=== PATIENT | male | born 1970 | race Caucasian/White ===

== ENCOUNTER 2021-03-28 17:18 | Inpatient (IN) | payer MEDICAID, OTHER ==
[~2021-03-28] VITALS: Ht 188 cm; Wt 76.8 kg
--- NOTE | 2021-03-28 17:32 | NUR ---
EKG IN TRIAGE.
--- NOTE | 2021-03-28 17:43 | NUR ---
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
--- NOTE | 2021-03-28 17:47 | NUR ---
CONTACT WITH PT, 50 YR OLD MALE HERE WITH C/O " I'M DYING, I HAVE COVID, SEVERE CHILLS, EXTREME FATIGUE, LITTLE BIT OF NAUSEA" BEGAN LAST TUES. HAS NOT BEEN TESTED AND HAS NOT HAD THE VACCINE.
--- NOTE | 2021-03-28 18:55 | NUR ---
REPORT TO GENARO NICOLE.
[2021-03-28 19:22] LABS: RAPID INFLUENZA A Negative (Negative); RAPID INFLUENZA B Negative (Negative)
[2021-03-28] MEDS ORDERED: SODIUM CHLORIDE FLUSH 10ML SYR IVF ONE (19:30)
[2021-03-28] MEDS ORDERED: DEXAMETHASONE 4 MG/ML, 1ML IVPush ONE (19:30)
[2021-03-28] MEDS ORDERED: DEXAMETHASONE 4 MG/ML, 1ML ONE (19:40)
[2021-03-28 20:12] LABS: BASOPHILS % (AUTO) 0 % (0-1); EOSINOPHILS % (AUTO) 0 % (1-7); LYMPHOCYTES % (AUTO) 11 % (22-44); MEAN CORPUSCULAR HEMOGLOBIN 30.4 pg (27.5-34.5); MEAN CORPUSCULAR HGB CONC 33.9 g/dL (33.2-36.2); MEAN PLATELET VOLUME 7.7 fL (7.4-10.4); MONOCYTES % (AUTO) 5 % (2-9); NEUTROPHILS % (AUTO) 84 % (42-75); PLATELET COUNT 186 x10^3/uL (130-400); RED BLOOD COUNT 4.96 x10^6/uL (4.38-5.82); RED CELL DISTRIBUTION WIDTH 13.7 % (9.4-14.8)
[2021-03-28 20:13] LABS: MD NO
[2021-03-28 20:22] LABS: ALBUMIN 3.2 g/dL (3.4-5.0); ANION GAP 6 mmol/L (5-15); CALCIUM 8.5 mg/dL (8.5-10.1); CHLORIDE 100 mmol/L (98-107); CREATININE 0.97 mg/dL (0.7-1.3)
[2021-03-28] MEDS ORDERED: SODIUM CHLORIDE FLUSH 10ML SYR IVF PRN (20:30)
[2021-03-28 22:08] VITALS: BP 131/89
[2021-03-28] MEDS ORDERED: LIDODERM 5% PATCH TD PRN (23:00)
[2021-03-28] MEDS ORDERED: NS + 20MEQ KCL 1,000 ML IV SCH (23:00)
[2021-03-28] MEDS ORDERED: ACETAMINOPHEN 325 MG TABLET PO PRN (23:00)
[2021-03-28] MEDS ORDERED: PHARMACY MAY ADJ FOR RENAL FX MC PRN (23:00)
[2021-03-28] MEDS ORDERED: DOCUSATE 100 MG CAPSULE PO PRN (23:00)
[2021-03-29] MEDS: MELATONIN 5 MG TABLET PO SCH ×2 (00:51→21:39)
[2021-03-29 02:00] VITALS: BP 120/81
[2021-03-29 05:30] LABS: BASOPHILS % (AUTO) 0 % (0-1); EOSINOPHILS % (AUTO) 0 % (1-7); LYMPHOCYTES % (AUTO) 10 % (22-44); MEAN CORPUSCULAR HEMOGLOBIN 30.7 pg (27.5-34.5); MEAN CORPUSCULAR HGB CONC 34.1 g/dL (33.2-36.2); MEAN PLATELET VOLUME 7.6 fL (7.4-10.4); MONOCYTES % (AUTO) 3 % (2-9); NEUTROPHILS % (AUTO) 87 % (42-75); PLATELET COUNT 208 x10^3/uL (130-400); RED BLOOD COUNT 5.18 x10^6/uL (4.38-5.82); RED CELL DISTRIBUTION WIDTH 14.1 % (9.4-14.8)
[2021-03-29 05:32] LABS: HCT (SEDRATE) 45.9 % (39.2-51.8)
[2021-03-29 05:35] LABS: MD NO
[2021-03-29 05:41] LABS: ALBUMIN 3.3 g/dL (3.4-5.0); ANION GAP 6 mmol/L (5-15); CALCIUM 9.1 mg/dL (8.5-10.1); CHLORIDE 101 mmol/L (98-107)
[2021-03-29 05:45] LABS: D-DIMER 0.96 ug/mlFEU (0.00-0.52); INTERNATIONAL NORMALIZED RATIO 0.97 (0.93-1.1); PROTHROMBIN TIME 10.4 Seconds (9.6-11.5)
[2021-03-29 06:00] LABS: ALANINE AMINOTRANSFERASE 227 U/L (12-78); ALKALINE PHOSPHATASE 186 U/L (45-117); BILIRUBIN,TOTAL 0.4 mg/dL (0.2-1.0); CREATINE KINASE, TOTAL 329 U/L (39-308); CREATININE 0.95 mg/dL (0.7-1.3); TOTAL PROTEIN 7.9 g/dL (6.4-8.2)
[2021-03-29] MEDS: DOXYCYCLINE 100 MG in DEXTROSE 5% 250 ML IV SCH ×2 (06:15→18:44)
[2021-03-29 07:59] VITALS: BP 126/83
[2021-03-29] MEDS: ASCORBIC ACID 500 MG TABLET PO SCH ×2 (08:16→21:39)
[2021-03-29] MEDS: ZINC SULFATE 220 MG CAPSULE PO SCH (08:44)
[2021-03-29 08:52] LABS: % IRON SATURATION 17 % (20-55); IRON LEVEL 35 mcg/dL (65-175); TOTAL IRON BINDING CAPACITY 211 mcg/dL (250-450); TRANSFERRIN 169 mg/dL (200-360)
[2021-03-29] MEDS ORDERED: DEXAMETHASONE 4 MG/ML, 1ML IVPush SCH (09:00)
[2021-03-29 12:40] VITALS: BP 132/93
[2021-03-29] MEDS ORDERED: REMDESIVIR 200 MG in SODIUM CHLORIDE 0.9% 250 ML IVPB ONE (13:00)
[2021-03-29] MEDS: ENOXAPARIN 40 MG/0.4 ML SQ SCH (16:44)
[2021-03-29] MEDS: DEXAMETHASONE 4 MG TABLET PO SCH (16:53)
[2021-03-29 20:54] VITALS: BP 130/89
[2021-03-30 02:46] VITALS: BP 115/80
[2021-03-30 05:49] LABS: BASOPHILS % (AUTO) 0 % (0-1); EOSINOPHILS % (AUTO) 0 % (1-7); LYMPHOCYTES % (AUTO) 7 % (22-44); MEAN CORPUSCULAR HEMOGLOBIN 30.4 pg (27.5-34.5); MEAN CORPUSCULAR HGB CONC 33.7 g/dL (33.2-36.2); MEAN PLATELET VOLUME 7.1 fL (7.4-10.4); MONOCYTES % (AUTO) 9 % (2-9); NEUTROPHILS % (AUTO) 85 % (42-75); PLATELET COUNT 257 x10^3/uL (130-400); RED BLOOD COUNT 4.87 x10^6/uL (4.38-5.82); RED CELL DISTRIBUTION WIDTH 13.9 % (9.4-14.8)
[2021-03-30 05:50] LABS: MD NO
[2021-03-30 05:51] LABS: HCT (SEDRATE) 42.9 % (39.2-51.8)
[2021-03-30 06:02] LABS: ANION GAP 6 mmol/L (5-15); CALCIUM 8.6 mg/dL (8.5-10.1); CHLORIDE 107 mmol/L (98-107)
[2021-03-30] MEDS: DOXYCYCLINE 100 MG in DEXTROSE 5% 250 ML IV SCH ×2 (06:04→18:07)
[2021-03-30 06:06] LABS: ALBUMIN 2.9 g/dL (3.4-5.0); BILIRUBIN, DIRECT 0.2 mg/dL (0.1-0.2); BILIRUBIN,INDIRECT 0.2 mg/dL (0.0-2.0); BILIRUBIN,TOTAL 0.4 mg/dL (0.2-1.0); TOTAL PROTEIN 6.7 g/dL (6.4-8.2)
[2021-03-30 06:24] LABS: ALANINE AMINOTRANSFERASE 216 U/L (12-78); ALKALINE PHOSPHATASE 155 U/L (45-117); BILIRUBIN,TOTAL 0.4 mg/dL (0.2-1.0); CREATINE KINASE, TOTAL 199 U/L (39-308)
[2021-03-30 07:42] VITALS: BP 136/92
[2021-03-30] MEDS: ASCORBIC ACID 500 MG TABLET PO SCH ×2 (07:50→20:36)
[2021-03-30] MEDS: ZINC SULFATE 220 MG CAPSULE PO SCH (07:50)
[2021-03-30] MEDS: DEXAMETHASONE 4 MG TABLET PO SCH ×2 (07:50→16:36)
[2021-03-30] MEDS ORDERED: GUAIFENESIN/DM 200-20MG, 10ML UDC PO PRN (09:00)
[2021-03-30] MEDS: BENZONATATE 100 MG CAPSULE PO SCH ×3 (09:19→20:36)
[2021-03-30] MEDS: REMDESIVIR 100 MG in SODIUM CHLORIDE 0.9% 250 ML IVPB SCH (13:06)
[2021-03-30] MEDS: ACETAMINOPHEN 325 MG TABLET PO PRN ×2 (13:14→20:45)
[2021-03-30 13:19] VITALS: BP 127/87
[2021-03-30] MEDS: ENOXAPARIN 40 MG/0.4 ML SQ SCH (16:37)
[2021-03-30 20:00] VITALS: BP 122/80
[2021-03-30] MEDS: MELATONIN 5 MG TABLET PO SCH (20:36)
[2021-03-31 01:11] VITALS: BP 130/91
[2021-03-31] MEDS: DOXYCYCLINE 100 MG in DEXTROSE 5% 250 ML IV SCH ×2 (05:59→17:47)
[2021-03-31 06:04] LABS: BASOPHILS % (AUTO) 0 % (0-1); EOSINOPHILS % (AUTO) 0 % (1-7); LYMPHOCYTES % (AUTO) 8 % (22-44); MEAN CORPUSCULAR HEMOGLOBIN 30.9 pg (27.5-34.5); MEAN CORPUSCULAR HGB CONC 34.5 g/dL (33.2-36.2); MEAN PLATELET VOLUME 6.9 fL (7.4-10.4); MONOCYTES % (AUTO) 8 % (2-9); NEUTROPHILS % (AUTO) 84 % (42-75); PLATELET COUNT 280 x10^3/uL (130-400); RED CELL DISTRIBUTION WIDTH 14.2 % (9.4-14.8)
[2021-03-31 06:04] LABS: HCT (SEDRATE) 40.7 % (39.2-51.8)
[2021-03-31 06:05] VITALS: BP 124/83
[2021-03-31 06:09] LABS: D-DIMER 0.64 ug/mlFEU (0.00-0.52); INTERNATIONAL NORMALIZED RATIO 0.98 (0.93-1.1); PROTHROMBIN TIME 10.5 Seconds (9.6-11.5)
[2021-03-31 06:14] LABS: MD NO
[2021-03-31 06:49] LABS: CREATINE KINASE, TOTAL 142 U/L (39-308)
[2021-03-31 06:58] LABS: ANION GAP 6 mmol/L (5-15); CALCIUM 8.6 mg/dL (8.5-10.1); CHLORIDE 109 mmol/L (98-107)
[2021-03-31 06:59] LABS: ALANINE AMINOTRANSFERASE 408 U/L (12-78); ALBUMIN 2.7 g/dL (3.4-5.0); ALKALINE PHOSPHATASE 151 U/L (45-117); BILIRUBIN,TOTAL 0.6 mg/dL (0.2-1.0); CREATININE 0.84 mg/dL (0.7-1.3); TOTAL PROTEIN 6.2 g/dL (6.4-8.2)
[2021-03-31 07:37] LABS: BILIRUBIN, DIRECT 0.2 mg/dL (0.1-0.2)
[2021-03-31] MEDS: ACETAMINOPHEN 325 MG TABLET PO PRN (08:27)
[2021-03-31] MEDS: BENZONATATE 100 MG CAPSULE PO SCH ×3 (08:27→20:54)
[2021-03-31] MEDS: ASCORBIC ACID 500 MG TABLET PO SCH ×2 (08:27→20:55)
[2021-03-31] MEDS: DEXAMETHASONE 4 MG TABLET PO SCH ×2 (08:27→17:46)
[2021-03-31] MEDS: ZINC SULFATE 220 MG CAPSULE PO SCH (08:27)
[2021-03-31 12:07] VITALS: BP 126/86
[2021-03-31] MEDS: REMDESIVIR 100 MG in SODIUM CHLORIDE 0.9% 250 ML IVPB SCH (13:31)
[2021-03-31] MEDS: ENOXAPARIN 40 MG/0.4 ML SQ SCH (17:45)
[2021-03-31 20:25] VITALS: BP 135/89
[2021-03-31] MEDS: MELATONIN 5 MG TABLET PO SCH (20:54)
[2021-04-01 02:02] VITALS: BP 129/85
[2021-04-01] MEDS: DOXYCYCLINE 100 MG in DEXTROSE 5% 250 ML IV SCH ×2 (06:02→17:25)
[2021-04-01 06:14] LABS: BASOPHILS % (AUTO) 0 % (0-1); EOSINOPHILS % (AUTO) 0 % (1-7); LYMPHOCYTES % (AUTO) 6 % (22-44); MEAN CORPUSCULAR HEMOGLOBIN 30.6 pg (27.5-34.5); MEAN CORPUSCULAR HGB CONC 33.5 g/dL (33.2-36.2); MONOCYTES % (AUTO) 10 % (2-9); NEUTROPHILS % (AUTO) 84 % (42-75); PLATELET COUNT 295 x10^3/uL (130-400); RED BLOOD COUNT 4.46 x10^6/uL (4.38-5.82); RED CELL DISTRIBUTION WIDTH 14.1 % (9.4-14.8)
[2021-04-01 06:15] LABS: MD NO
[2021-04-01 06:30] LABS: CHLORIDE 106 mmol/L (98-107)
[2021-04-01] MEDS ORDERED: AZITHROMYCIN 500 MG in SODIUM CHLORIDE 0.9% 250 ML IV SCH (06:30)
[2021-04-01 06:53] LABS: ALANINE AMINOTRANSFERASE 415 U/L (12-78); ALBUMIN 2.7 g/dL (3.4-5.0); ALKALINE PHOSPHATASE 134 U/L (45-117); ANION GAP 7 mmol/L (5-15); BILIRUBIN,TOTAL 0.4 mg/dL (0.2-1.0); C-REACTIVE PROTEIN, QUANT 0.61 mg/dL (0.02-0.49); CALCIUM 8.3 mg/dL (8.5-10.1); CREATINE KINASE, TOTAL 88 U/L (39-308); CREATININE 0.81 mg/dL (0.7-1.3); TOTAL PROTEIN 6.1 g/dL (6.4-8.2)
[2021-04-01 07:49] LABS: ALBUMIN 2.7 g/dL (3.4-5.0); BILIRUBIN, DIRECT 0.1 mg/dL (0.1-0.2)
[2021-04-01 07:50] LABS: BILIRUBIN,INDIRECT 0.3 mg/dL (0.0-2.0); BILIRUBIN,TOTAL 0.4 mg/dL (0.2-1.0); TOTAL PROTEIN 6.3 g/dL (6.4-8.2)
[2021-04-01 07:51] LABS: HCT (SEDRATE) 40.7 % (39.2-51.8)
[2021-04-01] MEDS: ACETAMINOPHEN 325 MG TABLET PO PRN (08:03)
[2021-04-01] MEDS: ZINC SULFATE 220 MG CAPSULE PO SCH (08:03)
[2021-04-01] MEDS: BENZONATATE 100 MG CAPSULE PO SCH ×3 (08:03→22:00)
[2021-04-01] MEDS: DEXAMETHASONE 4 MG TABLET PO SCH ×2 (08:04→17:23)
[2021-04-01] MEDS: ASCORBIC ACID 500 MG TABLET PO SCH ×2 (08:04→22:01)
[2021-04-01 08:06] VITALS: BP 126/89
[2021-04-01] MEDS ORDERED: OXYcodone/APAP 5/325MG TABLET PO PRN (09:30)
[2021-04-01] MEDS ORDERED: morphine SULFATE 10 MG/ML, 1ML IVPush PRN (09:30)
[2021-04-01] MEDS: REMDESIVIR 100 MG in SODIUM CHLORIDE 0.9% 250 ML IVPB SCH (13:01)
[2021-04-01 14:00] VITALS: BP 121/80
[2021-04-01] MEDS: ENOXAPARIN 40 MG/0.4 ML SQ SCH (17:24)
[2021-04-01 19:37] VITALS: BP 129/71
[2021-04-01] MEDS: MELATONIN 5 MG TABLET PO SCH (21:59)
[2021-04-02 01:41] VITALS: BP 126/87
[2021-04-02] MEDS: DOXYCYCLINE 100 MG in DEXTROSE 5% 250 ML IV SCH ×2 (05:23→17:29)
[2021-04-02 05:26] LABS: HCT (SEDRATE) 40.3 % (39.2-51.8)
[2021-04-02 05:34] LABS: BASOPHILS % (AUTO) 0 % (0-1); EOSINOPHILS % (AUTO) 0 % (1-7); LYMPHOCYTES % (AUTO) 7 % (22-44); MEAN CORPUSCULAR HEMOGLOBIN 30.8 pg (27.5-34.5); MEAN CORPUSCULAR HGB CONC 34.4 g/dL (33.2-36.2); MEAN PLATELET VOLUME 7.1 fL (7.4-10.4); MONOCYTES % (AUTO) 13 % (2-9); NEUTROPHILS % (AUTO) 80 % (42-75); PLATELET COUNT 293 x10^3/uL (130-400); RED BLOOD COUNT 4.49 x10^6/uL (4.38-5.82); RED CELL DISTRIBUTION WIDTH 13.9 % (9.4-14.8)
[2021-04-02 05:38] LABS: D-DIMER 0.94 ug/mlFEU (0.00-0.52); INTERNATIONAL NORMALIZED RATIO 1.06 (0.93-1.1); PROTHROMBIN TIME 11.3 Seconds (9.6-11.5)
[2021-04-02 05:40] LABS: ALBUMIN 2.6 g/dL (3.4-5.0); ANION GAP 9 mmol/L (5-15); CALCIUM 8.2 mg/dL (8.5-10.1); CHLORIDE 108 mmol/L (98-107)
[2021-04-02 05:42] LABS: MD NO
[2021-04-02 05:45] LABS: ALANINE AMINOTRANSFERASE 414 U/L (12-78); ALKALINE PHOSPHATASE 119 U/L (45-117); BILIRUBIN,TOTAL 0.6 mg/dL (0.2-1.0); C-REACTIVE PROTEIN, QUANT 0.38 mg/dL (0.02-0.49); CREATINE KINASE, TOTAL 75 U/L (39-308); CREATININE 0.71 mg/dL (0.7-1.3); TOTAL PROTEIN 5.8 g/dL (6.4-8.2)
[2021-04-02 07:44] VITALS: BP 126/83
[2021-04-02] MEDS: BENZONATATE 100 MG CAPSULE PO SCH ×3 (09:08→20:19)
[2021-04-02] MEDS: DEXAMETHASONE 4 MG TABLET PO SCH ×2 (09:08→17:29)
[2021-04-02] MEDS: ZINC SULFATE 220 MG CAPSULE PO SCH (09:09)
[2021-04-02] MEDS: ASCORBIC ACID 500 MG TABLET PO SCH ×2 (09:09→20:19)
[2021-04-02 10:42] LABS: BILIRUBIN, DIRECT 0.1 mg/dL (0.1-0.2)
[2021-04-02 12:56] VITALS: BP 136/98
[2021-04-02] MEDS: REMDESIVIR 100 MG in SODIUM CHLORIDE 0.9% 250 ML IVPB SCH (13:09)
[2021-04-02] MEDS: ENOXAPARIN 40 MG/0.4 ML SQ SCH (17:29)
[2021-04-02 20:08] VITALS: BP 128/86
[2021-04-02] MEDS: MELATONIN 5 MG TABLET PO SCH (20:20)
[2021-04-03 02:25] VITALS: BP 120/86
[2021-04-03] MEDS: DOXYCYCLINE 100 MG in DEXTROSE 5% 250 ML IV SCH ×2 (05:26→17:32)
[2021-04-03 05:51] LABS: HCT (SEDRATE) 41.7 % (39.2-51.8)
[2021-04-03 05:54] LABS: BASOPHILS % (AUTO) 0 % (0-1); EOSINOPHILS % (AUTO) 0 % (1-7); LYMPHOCYTES % (AUTO) 8 % (22-44); MEAN CORPUSCULAR HEMOGLOBIN 30.8 pg (27.5-34.5); MEAN CORPUSCULAR HGB CONC 34.6 g/dL (33.2-36.2); MEAN PLATELET VOLUME 7.2 fL (7.4-10.4); MONOCYTES % (AUTO) 10 % (2-9); NEUTROPHILS % (AUTO) 82 % (42-75); PLATELET COUNT 313 x10^3/uL (130-400); RED BLOOD COUNT 4.56 x10^6/uL (4.38-5.82); RED CELL DISTRIBUTION WIDTH 13.7 % (9.4-14.8)
[2021-04-03 05:57] LABS: MD NO
[2021-04-03 06:00] LABS: ALANINE AMINOTRANSFERASE 359 U/L (12-78); ALBUMIN 2.7 g/dL (3.4-5.0); ANION GAP 8 mmol/L (5-15); C-REACTIVE PROTEIN, QUANT 0.25 mg/dL (0.02-0.49); CALCIUM 8.2 mg/dL (8.5-10.1); CHLORIDE 108 mmol/L (98-107); CREATININE 0.69 mg/dL (0.7-1.3)
[2021-04-03 06:05] LABS: ALKALINE PHOSPHATASE 114 U/L (45-117); BILIRUBIN,TOTAL 0.5 mg/dL (0.2-1.0); CREATINE KINASE, TOTAL 64 U/L (39-308); TOTAL PROTEIN 5.8 g/dL (6.4-8.2)
[2021-04-03 06:14] LABS: ALBUMIN 2.7 g/dL (3.4-5.0); BILIRUBIN, DIRECT 0.2 mg/dL (0.1-0.2); BILIRUBIN,INDIRECT 0.3 mg/dL (0.0-2.0); BILIRUBIN,TOTAL 0.5 mg/dL (0.2-1.0); TOTAL PROTEIN 5.9 g/dL (6.4-8.2)
[2021-04-03 08:59] VITALS: BP 127/83
[2021-04-03] MEDS: BENZONATATE 100 MG CAPSULE PO SCH ×3 (09:23→20:43)
[2021-04-03] MEDS: DEXAMETHASONE 4 MG TABLET PO SCH ×2 (09:23→17:32)
[2021-04-03] MEDS: ASCORBIC ACID 500 MG TABLET PO SCH ×2 (09:23→20:43)
[2021-04-03] MEDS: CHOLECALCIFEROL 5,000u TAB PO SCH (09:25)
[2021-04-03] MEDS: ZINC SULFATE 220 MG CAPSULE PO SCH (09:25)
[2021-04-03] MEDS: FLUTICASONE/VILANTEROL 100-25MCG/INH INH SCH (09:25)
[2021-04-03] MEDS: MAGNESIUM HYDROXIDE 8%, 30ML UDC PO SCH ×2 (11:30→18:11)
[2021-04-03 17:28] VITALS: BP 141/96
[2021-04-03] MEDS: ENOXAPARIN 40 MG/0.4 ML SQ SCH (17:32)
[2021-04-03 19:46] VITALS: BP 132/90
[2021-04-03] MEDS: MELATONIN 5 MG TABLET PO SCH (20:43)
[2021-04-04 01:24] VITALS: BP 132/84
[2021-04-04] MEDS: DOXYCYCLINE 100 MG in DEXTROSE 5% 250 ML IV SCH (05:19)
[2021-04-04 08:20] VITALS: BP 122/92
[2021-04-04 08:49] LABS: MEAN CORPUSCULAR HEMOGLOBIN 30.1 pg (27.5-34.5); MEAN CORPUSCULAR HGB CONC 33.3 g/dL (33.2-36.2); PLATELET COUNT 332 x10^3/uL (130-400); RED BLOOD COUNT 4.89 x10^6/uL (4.38-5.82); RED CELL DISTRIBUTION WIDTH 13.6 % (9.4-14.8)
[2021-04-04 09:02] LABS: ALANINE AMINOTRANSFERASE 304 U/L (12-78); ALBUMIN 2.9 g/dL (3.4-5.0); ANION GAP 5 mmol/L (5-15); C-REACTIVE PROTEIN, QUANT 0.23 mg/dL (0.02-0.49); CALCIUM 8.4 mg/dL (8.5-10.1); CHLORIDE 107 mmol/L (98-107); CREATININE 0.72 mg/dL (0.7-1.3); D-DIMER 1.09 ug/mlFEU (0.00-0.52); INTERNATIONAL NORMALIZED RATIO 0.99 (0.93-1.1); PROTHROMBIN TIME 10.6 Seconds (9.6-11.5)
[2021-04-04 09:06] LABS: ALKALINE PHOSPHATASE 106 U/L (45-117); BILIRUBIN,TOTAL 0.6 mg/dL (0.2-1.0); CREATINE KINASE, TOTAL 55 U/L (39-308); TOTAL PROTEIN 6.4 g/dL (6.4-8.2)
[2021-04-04 09:17] LABS: HCT (SEDRATE) 44.1 % (39.2-51.8)
[2021-04-04 09:40] LABS: MD YES
[2021-04-04] MEDS: MAGNESIUM HYDROXIDE 8%, 30ML UDC PO SCH ×2 (09:41→20:52)
[2021-04-04] MEDS: BENZONATATE 100 MG CAPSULE PO SCH ×3 (09:41→20:52)
[2021-04-04 09:42] LABS: BAND#(MANUAL) 0.41 x10^3/uL; BANDS%(MANUAL) 3 % (0-7); LYMPH#(MANUAL) 1.09 x10^3/uL (1-3.4); LYMPHS% (MANUAL) 8 % (22-44); METAMYELOCYTES# (MANUAL) 0.41 x10^3/uL (0-0); METAMYELOCYTES% (MANUAL) 3 % (0-1); MONOS#(MANUAL) 0.68 x10^3/uL (0.3-2.7); MONOS% (MANUAL) 5 % (2-9); REACTIVE LYMPHS # (MANUAL) 0.14 x10^3/uL (0-0); REACTIVE LYMPHS % (MANUAL) 1 % (0-0); SEG#(MANUAL) 10.88 x10^3/uL (1.8-6.8); SEGS% (MANUAL) 80 % (42-75)
[2021-04-04] MEDS: CHOLECALCIFEROL 5,000u TAB PO SCH (09:42)
[2021-04-04] MEDS: ZINC SULFATE 220 MG CAPSULE PO SCH (09:42)
[2021-04-04] MEDS: ASCORBIC ACID 500 MG TABLET PO SCH ×2 (09:42→20:52)
[2021-04-04 09:43] LABS: <PLATELET ESTIMATE> ADEQUATE; <PLT MORPHOLOGY> NORMAL PLT MORPH; <RBC MORPHOLOGY> NORMAL
[2021-04-04] MEDS: DEXAMETHASONE 4 MG TABLET PO SCH ×2 (09:43→17:00)
[2021-04-04] MEDS: FLUTICASONE/VILANTEROL 100-25MCG/INH INH SCH (09:46)
[2021-04-04 12:09] VITALS: BP 125/79
[2021-04-04] MEDS: ENOXAPARIN 40 MG/0.4 ML SQ SCH (17:00)
[2021-04-04] MEDS: DOXYCYCLINE 100MG TABLET PO SCH (17:00)
[2021-04-04 20:17] VITALS: BP 132/84
[2021-04-04] MEDS: MELATONIN 5 MG TABLET PO SCH (20:52)
[2021-04-05 01:40] VITALS: BP 129/84
[2021-04-05] MEDS: DOXYCYCLINE 100MG TABLET PO SCH ×2 (04:45→17:15)
[2021-04-05 05:35] LABS: HCT (SEDRATE) 43.3 % (39.2-51.8)
[2021-04-05 05:37] LABS: MEAN CORPUSCULAR HEMOGLOBIN 30.3 pg (27.5-34.5); MEAN CORPUSCULAR HGB CONC 33.7 g/dL (33.2-36.2); MEAN PLATELET VOLUME 7.3 fL (7.4-10.4); PLATELET COUNT 381 x10^3/uL (130-400); RED BLOOD COUNT 4.89 x10^6/uL (4.38-5.82); RED CELL DISTRIBUTION WIDTH 13.9 % (9.4-14.8)
[2021-04-05 05:38] LABS: CHLORIDE 105 mmol/L (98-107)
[2021-04-05 05:50] LABS: ALANINE AMINOTRANSFERASE 243 U/L (12-78); ALBUMIN 2.8 g/dL (3.4-5.0); ALKALINE PHOSPHATASE 96 U/L (45-117); ANION GAP 6 mmol/L (5-15); BILIRUBIN,TOTAL 0.5 mg/dL (0.2-1.0); C-REACTIVE PROTEIN, QUANT 0.14 mg/dL (0.02-0.49); CALCIUM 8.1 mg/dL (8.5-10.1); CREATINE KINASE, TOTAL 46 U/L (39-308); CREATININE 0.73 mg/dL (0.7-1.3); TOTAL PROTEIN 6.7 g/dL (6.4-8.2)
[2021-04-05 06:31] LABS: MD YES
[2021-04-05 06:33] LABS: LYMPH#(MANUAL) 1.35 x10^3/uL (1-3.4); LYMPHS% (MANUAL) 9 % (22-44); MONOS% (MANUAL) 6 % (2-9)
[2021-04-05 06:34] LABS: <PLATELET ESTIMATE> ADEQUATE; <PLT MORPHOLOGY> NORMAL PLT MORPH; <RBC MORPHOLOGY> NORMAL; SEGS% (MANUAL) 82 % (42-75)
[2021-04-05 06:35] LABS: BANDS%(MANUAL) 2 % (0-7); METAMYELOCYTES# (MANUAL) 0.15 x10^3/uL (0-0); METAMYELOCYTES% (MANUAL) 1 % (0-1)
[2021-04-05] MEDS: FLUTICASONE/VILANTEROL 100-25MCG/INH INH SCH (07:32)
[2021-04-05 07:56] VITALS: BP 132/91
[2021-04-05] MEDS: DEXAMETHASONE 4 MG TABLET PO SCH ×2 (08:27→17:15)
[2021-04-05] MEDS: BENZONATATE 100 MG CAPSULE PO SCH ×3 (08:27→23:17)
[2021-04-05] MEDS: CHOLECALCIFEROL 5,000u TAB PO SCH (08:28)
[2021-04-05] MEDS: ASCORBIC ACID 500 MG TABLET PO SCH ×2 (08:28→20:33)
[2021-04-05] MEDS: ZINC SULFATE 220 MG CAPSULE PO SCH (08:28)
[2021-04-05] MEDS: MAGNESIUM HYDROXIDE 8%, 30ML UDC PO SCH ×2 (09:00→20:16)
[2021-04-05 12:08] VITALS: BP 123/84
[2021-04-05] MEDS: ENOXAPARIN 40 MG/0.4 ML SQ SCH (17:16)
[2021-04-05 20:15] VITALS: BP 128/84
[2021-04-05] MEDS: MELATONIN 5 MG TABLET PO SCH (20:33)
[2021-04-06 01:38] VITALS: BP 122/91
[2021-04-06] MEDS: ACETAMINOPHEN 325 MG TABLET PO PRN (03:44)
[2021-04-06] MEDS: DOXYCYCLINE 100MG TABLET PO SCH ×2 (05:02→16:39)
[2021-04-06 05:58] LABS: BASOPHILS % (AUTO) 0 % (0-1); EOSINOPHILS % (AUTO) 0 % (1-7); HCT (SEDRATE) 43.8 % (39.2-51.8); LYMPHOCYTES % (AUTO) 7 % (22-44); MEAN PLATELET VOLUME 7.5 fL (7.4-10.4); MONOCYTES % (AUTO) 5 % (2-9); NEUTROPHILS % (AUTO) 88 % (42-75); PLATELET COUNT 371 x10^3/uL (130-400); RED BLOOD COUNT 4.89 x10^6/uL (4.38-5.82); RED CELL DISTRIBUTION WIDTH 13.9 % (9.4-14.8)
[2021-04-06 06:12] LABS: D-DIMER 0.8 ug/mlFEU (0.00-0.52); INTERNATIONAL NORMALIZED RATIO 0.97 (0.93-1.1); PROTHROMBIN TIME 10.4 Seconds (9.6-11.5)
[2021-04-06 06:13] LABS: ALANINE AMINOTRANSFERASE 189 U/L (12-78); ALBUMIN 2.9 g/dL (3.4-5.0); ANION GAP 8 mmol/L (5-15); C-REACTIVE PROTEIN, QUANT 0.16 mg/dL (0.02-0.49); CALCIUM 8.4 mg/dL (8.5-10.1); CHLORIDE 105 mmol/L (98-107)
[2021-04-06 06:18] LABS: ALKALINE PHOSPHATASE 86 U/L (45-117); BILIRUBIN,TOTAL 0.7 mg/dL (0.2-1.0); CREATINE KINASE, TOTAL 46 U/L (39-308); CREATININE 0.75 mg/dL (0.7-1.3); TOTAL PROTEIN 6.5 g/dL (6.4-8.2)
[2021-04-06 07:03] LABS: MD NO
[2021-04-06 07:50] VITALS: BP 151/98
[2021-04-06] MEDS: CHOLECALCIFEROL 5,000u TAB PO SCH (09:05)
[2021-04-06] MEDS: DEXAMETHASONE 4 MG TABLET PO SCH ×2 (09:05→16:38)
[2021-04-06] MEDS: MAGNESIUM HYDROXIDE 8%, 30ML UDC PO SCH ×2 (09:05→20:18)
[2021-04-06] MEDS: ZINC SULFATE 220 MG CAPSULE PO SCH (09:06)
[2021-04-06] MEDS: BENZONATATE 100 MG CAPSULE PO SCH ×3 (09:06→20:18)
[2021-04-06] MEDS: ASCORBIC ACID 500 MG TABLET PO SCH ×2 (09:06→20:19)
[2021-04-06 16:34] VITALS: BP 138/91
[2021-04-06] MEDS: ENOXAPARIN 40 MG/0.4 ML SQ SCH (16:39)
[2021-04-06 20:14] VITALS: BP 153/100
[2021-04-06] MEDS ORDERED: MELATONIN 5 MG TABLET PO SCH (21:00)
[2021-04-07 01:10] VITALS: BP 159/99
[2021-04-07] MEDS: DOXYCYCLINE 100MG TABLET PO SCH (04:54)
[2021-04-07 05:31] LABS: CALCIUM 8.7 mg/dL (8.5-10.1); CHLORIDE 104 mmol/L (98-107)
[2021-04-07 05:33] LABS: BASOPHILS % (AUTO) 0 % (0-1); EOSINOPHILS % (AUTO) 0 % (1-7); LYMPHOCYTES % (AUTO) 6 % (22-44); MEAN CORPUSCULAR HEMOGLOBIN 30.6 pg (27.5-34.5); MEAN CORPUSCULAR HGB CONC 34.1 g/dL (33.2-36.2); MEAN PLATELET VOLUME 7.3 fL (7.4-10.4); MONOCYTES % (AUTO) 7 % (2-9); NEUTROPHILS % (AUTO) 87 % (42-75); PLATELET COUNT 435 x10^3/uL (130-400); RED BLOOD COUNT 5.26 x10^6/uL (4.38-5.82); RED CELL DISTRIBUTION WIDTH 14.1 % (9.4-14.8)
[2021-04-07 05:39] LABS: ALANINE AMINOTRANSFERASE 180 U/L (12-78); ALBUMIN 3.1 g/dL (3.4-5.0); ALKALINE PHOSPHATASE 94 U/L (45-117); ANION GAP 8 mmol/L (5-15); BILIRUBIN,TOTAL 0.7 mg/dL (0.2-1.0); C-REACTIVE PROTEIN, QUANT 0.09 mg/dL (0.02-0.49); CREATINE KINASE, TOTAL 45 U/L (39-308); CREATININE 0.93 mg/dL (0.7-1.3); HCT (SEDRATE) 47.1 % (39.2-51.8)
[2021-04-07 06:44] LABS: MD SCAN
[2021-04-07 07:59] VITALS: BP 146/103
[2021-04-07] MEDS: ZINC SULFATE 220 MG CAPSULE PO SCH (08:10)
[2021-04-07] MEDS: MAGNESIUM HYDROXIDE 8%, 30ML UDC PO SCH (08:10)
[2021-04-07] MEDS: CHOLECALCIFEROL 5,000u TAB PO SCH (08:11)
[2021-04-07] MEDS: BENZONATATE 100 MG CAPSULE PO SCH (08:11)
[2021-04-07] MEDS: DEXAMETHASONE 4 MG TABLET PO SCH (08:11)
[2021-04-07] MEDS: ASCORBIC ACID 500 MG TABLET PO SCH (08:11)
[2021-04-07 13:07] VITALS: BP 158/98
== END 2021-04-07 16:30 | disposition left against medical advice (07) | DRG 177 ==
LOC: ED 21:01 → EDIP 21:43 → UNDOADMIN 21:43 → EDIP 21:48 → 4EST 21:48 → EDIP 22:51 → 4EST 22:51 → 3N 04-05 16:46
PROVIDERS: ADMIT Family Medicine; ATTEND Family Medicine
PROC: XW033E5 Introduction of Remdesivir Anti-infective into Peripheral Vein, Percutaneous Approach, New Technology Group 5 (ICD-10-PCS; principal; 2021-03-29)
DX: U07.1 COVID-19 (principal); J12.82 Pneumonia due to coronavirus disease 2019; E87.1 Hypo-osmolality and hyponatremia; E87.6 Hypokalemia; N40.0 Benign prostatic hyperplasia without lower urinary tract symptoms; Z87.891 Personal history of nicotine dependence; Z88.1 Allergy status to other antibiotic agents; Z53.29 Procedure and treatment not carried out because of patient's decision for other reasons
CPT/HCPCS: 36415; 71045; 80048; 80053; 80076; 82040; 82248; 82550; 82728; 83540; 83550; 83615; 83735; 84100; 84145; 84153; 84466; 85025; 85379; 85384; 85610; 85651; 85730; 86140; 87400; 93005; 96374; 96375; 99285; G0378; J0456; J1100; J1650; J3480; J7060; G0103; J7050; U0003

== ENCOUNTER 2021-04-08 11:43 | Inpatient (IN) | payer MEDICAID ==
[~2021-04-08] VITALS: Ht 188 cm; Wt 75.5 kg
--- NOTE | 2021-04-08 12:29 | NUR ---
IV started and basic labs drawn prior to review of orders. nuclear plant technical advisor notified of need for lactate and BC x2 after review of labs. Placed on bedside monitor and noted good sats with 2L/min NC with reported triage RA sat 83% and + for covid. Pt states he AMA'd from inpatient hospitalization yesterday "just to get out" and is back today but unable to give clear reason for coming back. Pt states he "feels perfect but think I just needed to come back. I might have prostate cancer and I never followed up because I chickened out of getting scoped by my urologist 3 years ago." Pt denies feeling SOB, has chronic lower midline abd pain for the last 3 years without urinary symptoms today, and denies any other pains or Covid symptoms.
[2021-04-08 12:47] LABS: BASOPHILS % (AUTO) 0 % (0-1); EOSINOPHILS % (AUTO) 0 % (1-7); LYMPHOCYTES % (AUTO) 8 % (22-44); MEAN CORPUSCULAR HEMOGLOBIN 30.8 pg (27.5-34.5); MEAN CORPUSCULAR HGB CONC 34.4 g/dL (33.2-36.2); MEAN PLATELET VOLUME 7.3 fL (7.4-10.4); MONOCYTES % (AUTO) 8 % (2-9); NEUTROPHILS % (AUTO) 85 % (42-75); PLATELET COUNT 370 x10^3/uL (130-400); RED BLOOD COUNT 5.21 x10^6/uL (4.38-5.82); RED CELL DISTRIBUTION WIDTH 13.9 % (9.4-14.8)
[2021-04-08 12:58] LABS: ALANINE AMINOTRANSFERASE 157 U/L (12-78); ALBUMIN 3.3 g/dL (3.4-5.0); ANION GAP 8 mmol/L (5-15); C-REACTIVE PROTEIN, QUANT 0.56 mg/dL (0.02-0.49); CALCIUM 8.7 mg/dL (8.5-10.1); CHLORIDE 106 mmol/L (98-107); CREATININE 0.97 mg/dL (0.7-1.3)
[2021-04-08 12:59] LABS: D-DIMER (DIC) 1.52 ug/mlFEU (0.00-0.52); FIBRINOGEN 378 mg/dL (200-340); PROTIME 10.7 Seconds (9.6-11.5)
[2021-04-08 13:02] LABS: ALKALINE PHOSPHATASE 85 U/L (45-117)
[2021-04-08 13:29] LABS: MD SCAN
[2021-04-08 13:30] LABS: PTT < 23 Seconds (25-31)
[2021-04-08] MEDS ORDERED: DOXYCYCLINE 100 MG in DEXTROSE 5% 250 ML IV ONE (13:30)
[2021-04-08] MEDS ORDERED: SODIUM CHLORIDE 0.9% 1,000ML IVBOLUS ONE (13:30)
[2021-04-08] MEDS ORDERED: CEFTRIAXONE 1,000 MG in DEXTROSE 5% 50 ML IVPB ONE (13:30)
--- NOTE | 2021-04-08 13:34 | NUR ---
NS 1 liter bolus and Rocephin IVPB started at this time. Doxycycline IVPB set up for admin via pump and looking for pump to bring to room now.
--- NOTE | 2021-04-08 13:42 | NUR ---
Doxycycline IVPB started via pump to run over 1 hour at this time.
[2021-04-08 13:56] LABS: PLATELET (DIC) 370 x10^3/uL (130-400)
--- NOTE | 2021-04-08 14:06 | NUR ---
Rocephin completed. Doxycycline and NS bolus continue to run without issue at this time.
[2021-04-08] MEDS ORDERED: ONDANSETRON ODT 4 MG PO PRN (14:30)
[2021-04-08] MEDS ORDERED: ACETAMINOPHEN 325 MG TABLET PO PRN (14:30)
[2021-04-08] MEDS ORDERED: ONDANSETRON 2MG/ML, 2ML IVPush PRN (14:30)
--- NOTE | 2021-04-08 14:52 | NUR ---
Hospitalist in for exam. Urinal emptied of 200 dark yellow uop. Report called to BONNIE Edwards and pt being taken by product support technician to CT then to room 424.
[2021-04-08] MEDS ORDERED: OMNIPAQUE 350 MG/ML, 100ML BOTTLE ONE (15:14)
[2021-04-08] MEDS ORDERED: DEXAMETHASONE 4 MG/ML, 1ML IVPush ONE (15:39)
[2021-04-08] MEDS ORDERED: LABETALOL 5MG/ML, 20ML IVPush PRN (16:00)
[2021-04-08] MEDS ORDERED: VANCOMYCIN PER PHARMACY MC PRN (16:00)
[2021-04-08 16:20] VITALS: BP 118/80
[2021-04-08] MEDS ORDERED: ENOXAPARIN 40 MG/0.4 ML SQ SCH (17:00)
[2021-04-08] MEDS ORDERED: PHARMACOKINETIC MONITORING MC PRN (17:00)
[2021-04-08 17:15] LABS: AMPHETAMINE SCREEN, URINE Negative (Negative); BARBITURATE SCREEN, URINE Negative (Negative); BENZODIAZEPINE SCREEN, URINE Negative (Negative); CANNABINOID SCREEN, URINE Negative (Negative); COCAINE SCREEN, URINE Negative (Negative); METHADONE SCREEN, URINE Negative (Negative); OPIATE SCREEN, URINE Negative (Negative)
[2021-04-08] MEDS: PIPERACILLIN/TAZO 3.375 GM in DEXTROSE 5% 50 ML IVPB SCH (17:27)
[2021-04-08] MEDS ORDERED: VANCOMYCIN 1,800 MG in SODIUM CHLORIDE 0.9% 250 ML IV ONE (17:30)
[2021-04-08 20:36] VITALS: BP 140/88
[2021-04-09] MEDS: PIPERACILLIN/TAZO 3.375 GM in DEXTROSE 5% 50 ML IVPB SCH ×2 (01:30→09:08)
[2021-04-09 01:32] VITALS: BP 126/90
[2021-04-09] MEDS ORDERED: VANCOMYCIN 1,500 MG in SODIUM CHLORIDE 0.9% 250 ML IV SCH (05:00)
[2021-04-09 05:27] LABS: BASOPHILS % (AUTO) 0 % (0-1); EOSINOPHILS % (AUTO) 0 % (1-7); LYMPHOCYTES % (AUTO) 7 % (22-44); MEAN CORPUSCULAR HEMOGLOBIN 30.6 pg (27.5-34.5); MEAN CORPUSCULAR HGB CONC 33.7 g/dL (33.2-36.2); MEAN PLATELET VOLUME 7.5 fL (7.4-10.4); MONOCYTES % (AUTO) 7 % (2-9); NEUTROPHILS % (AUTO) 86 % (42-75); PLATELET COUNT 351 x10^3/uL (130-400); RED BLOOD COUNT 4.99 x10^6/uL (4.38-5.82)
[2021-04-09 05:37] LABS: MD NO
[2021-04-09 05:41] LABS: ALBUMIN 3.1 g/dL (3.4-5.0); ANION GAP 5 mmol/L (5-15); CALCIUM 8.1 mg/dL (8.5-10.1); CHLORIDE 108 mmol/L (98-107)
[2021-04-09 05:44] LABS: ALANINE AMINOTRANSFERASE 139 U/L (12-78); ALKALINE PHOSPHATASE 81 U/L (45-117); BILIRUBIN,TOTAL 0.8 mg/dL (0.2-1.0); CREATININE 0.94 mg/dL (0.7-1.3); TOTAL PROTEIN 6.6 g/dL (6.4-8.2)
[2021-04-09 08:29] VITALS: BP 138/87
[2021-04-09] MEDS ORDERED: DEXAMETHASONE 4 MG/ML, 1ML IVPush SCH (09:00)
[2021-04-09 12:35] VITALS: BP 136/86
== END 2021-04-09 14:25 | disposition left against medical advice (07) | DRG 177 ==
LOC: ED 14:15 → EDIP 14:16 → ED 14:27 → 4WST 16:13
PROVIDERS: ADMIT Internal Medicine; ATTEND Internal Medicine
DX: U07.1 COVID-19 (principal); J96.01 Acute respiratory failure with hypoxia; J12.82 Pneumonia due to coronavirus disease 2019; R65.10 Systemic inflammatory response syndrome (SIRS) of non-infectious origin without acute organ dysfunction; R00.0 Tachycardia, unspecified; R03.0 Elevated blood-pressure reading, without diagnosis of hypertension; Z53.29 Procedure and treatment not carried out because of patient's decision for other reasons; I10 Essential (primary) hypertension; Z85.46 Personal history of malignant neoplasm of prostate; Z87.891 Personal history of nicotine dependence; Z91.19 Patient's noncompliance with other medical treatment and regimen; Z88.1 Allergy status to other antibiotic agents
CPT/HCPCS: 36415; 71045; 71275; 80053; 80307; 82728; 83605; 83615; 83735; 84100; 84145; 85025; 85049; 85379; 85384; 85610; 85730; 86140; 87040; 93005; G0378; J0696; J1100; J1650; J2543; J3370; J7060; Q9967; J7030; J7050

== ENCOUNTER 2021-04-10 17:39 | Inpatient (IN) | payer MEDICAID ==
[~2021-04-10] VITALS: Ht 188 cm; Wt 72.3 kg
--- NOTE | 2021-04-10 17:51 | NUR ---
TASK RN: [facility] FROM HOME FOR COVID SX. PT STATES HE HAS BEEN COVID POSITIVE SINCE 03/19/2021. STATES SOB, FATIGUE, LOSS OF SMELL AND TASTE, CONGESTION, BODY ACHES, DIARRHEA. PT WAS SEEN HERE YESTERDAY FOR SAME LEFT AMA. 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 BP 155/115 TONE ARTIST APPRENTICE. PT RESTING ON GURNEY. NADN. MONITORS APPLIED. NOTED TO BE 87% RA PLACED ON 4L NC SATING 94-95%. EKG COMPLETED. NEFTALI INSTRUCTIONAL DESIGN MANAGER AT BEDSIDE ATTEMPTING PIV. ERP DR. HOPKINS AT BEDSIDE. REPORT GIVEN TO NEAL, PRIMARY RN.
[2021-04-10 18:11] LABS: BASOPHILS % (AUTO) 0 % (0-1); EOSINOPHILS % (AUTO) 1 % (1-7); LYMPHOCYTES % (AUTO) 11 % (22-44); MD NO; MEAN CORPUSCULAR HEMOGLOBIN 30.4 pg (27.5-34.5); MEAN CORPUSCULAR HGB CONC 33.4 g/dL (33.2-36.2); MEAN PLATELET VOLUME 7.2 fL (7.4-10.4); MONOCYTES % (AUTO) 8 % (2-9); NEUTROPHILS % (AUTO) 81 % (42-75); PLATELET COUNT 273 x10^3/uL (130-400); RED CELL DISTRIBUTION WIDTH 13.8 % (9.4-14.8)
[2021-04-10 18:22] LABS: ALBUMIN 3.1 g/dL (3.4-5.0); ANION GAP 7 mmol/L (5-15); CALCIUM 8.4 mg/dL (8.5-10.1); CHLORIDE 106 mmol/L (98-107); CREATININE 0.93 mg/dL (0.7-1.3)
[2021-04-10 18:26] LABS: TROPONIN I < 0.015 ng/mL (0.000-0.045)
[2021-04-10] MEDS ORDERED: SODIUM CHLORIDE 0.9% 1,000ML IVBOLUS ONE ×2 (18:30→19:30)
--- NOTE | 2021-04-10 18:58 | NUR ---
Report to BONNIE Herman and BONNIE SANTA. Pt resting in bed, connected to all monitors, NADN. All needs met at this time.
[2021-04-10] MEDS ORDERED: SODIUM CHLORIDE FLUSH 10ML SYR IVF ONE (19:00)
[2021-04-10] MEDS ORDERED: CEFTRIAXONE 1,000 MG in DEXTROSE 5% 50 ML IVPB ONE (19:30)
--- NOTE | 2021-04-10 20:23 | NUR ---
REPORT GIVEN SHI NICOLE TO ASSUME CARE. PT TO START 1000ML AND FINISH 300ML IMPATIENT.
[2021-04-10] MEDS ORDERED: DEXAMETHASONE 4 MG/ML, 1ML IVPush ONE (20:30)
[2021-04-10] MEDS ORDERED: POLYETHYLENE GLYCOL 17 GM PACKET PO PRN (20:30)
[2021-04-10] MEDS ORDERED: ACETAMINOPHEN 325 MG TABLET PO PRN (20:30)
[2021-04-10] MEDS ORDERED: BISACODYL 10 MG SUPP PR PRN (20:30)
[2021-04-10] MEDS ORDERED: GUAIFENESIN/DM 200-20MG, 10ML UDC PO PRN (21:30)
[2021-04-10] MEDS ORDERED: ONDANSETRON ODT 4 MG PO PRN (21:30)
[2021-04-10] MEDS: MELATONIN 5 MG TABLET PO PRN (22:03)
[2021-04-10] MEDS: DOXYCYCLINE 100 MG in DEXTROSE 5% 250 ML IV SCH (22:03)
[2021-04-10] MEDS: ASCORBIC ACID 500 MG TABLET PO SCH (22:03)
[2021-04-10] MEDS: HEPARIN 5,000 UNITS/ML, 1ML SQ SCH (22:04)
[2021-04-10] MEDS: NS + 20MEQ KCL 1,000 ML IV SCH (22:04)
[2021-04-10 22:14] VITALS: BP 155/105
[2021-04-11 01:22] VITALS: BP 132/93
[2021-04-11 04:37] LABS: BASOPHILS % (AUTO) 0 % (0-1); EOSINOPHILS % (AUTO) 0 % (1-7); LYMPHOCYTES % (AUTO) 5 % (22-44); MEAN CORPUSCULAR HEMOGLOBIN 30.9 pg (27.5-34.5); MEAN CORPUSCULAR HGB CONC 33.9 g/dL (33.2-36.2); MEAN PLATELET VOLUME 7.3 fL (7.4-10.4); MONOCYTES % (AUTO) 2 % (2-9); NEUTROPHILS % (AUTO) 93 % (42-75); PLATELET COUNT 219 x10^3/uL (130-400); RED BLOOD COUNT 4.33 x10^6/uL (4.38-5.82); RED CELL DISTRIBUTION WIDTH 13.9 % (9.4-14.8)
[2021-04-11 04:40] LABS: MD NO
[2021-04-11 04:52] LABS: CHLORIDE 112 mmol/L (98-107)
[2021-04-11 04:59] LABS: ANION GAP 6 mmol/L (5-15); CALCIUM 7.8 mg/dL (8.5-10.1); CREATININE 0.73 mg/dL (0.7-1.3)
[2021-04-11] MEDS: HEPARIN 5,000 UNITS/ML, 1ML SQ SCH ×3 (05:50→22:29)
[2021-04-11 07:30] VITALS: BP 145/93
[2021-04-11] MEDS: PIPERACILLIN/TAZO 3.375 GM in DEXTROSE 5% 50 ML IVPB SCH ×2 (07:56→16:10)
[2021-04-11] MEDS: SENNA/DOCUSATE TABLET PO SCH (08:15)
[2021-04-11] MEDS: CHOLECALCIFEROL 5,000u TAB PO SCH (09:00)
[2021-04-11] MEDS: DOXYCYCLINE 100 MG in DEXTROSE 5% 250 ML IV SCH ×2 (09:40→22:22)
[2021-04-11] MEDS: NS + 20MEQ KCL 1,000 ML IV SCH (09:40)
[2021-04-11] MEDS: ZINC SULFATE 220 MG CAPSULE PO SCH (09:43)
[2021-04-11] MEDS: ASCORBIC ACID 500 MG TABLET PO SCH ×2 (09:43→20:25)
[2021-04-11 12:20] VITALS: BP 135/92
[2021-04-11 19:35] VITALS: BP 148/93
[2021-04-11] MEDS: DEXAMETHASONE 4 MG/ML, 1ML IVPush SCH (20:25)
[2021-04-11] MEDS ORDERED: CEFTRIAXONE 1,000 MG in DEXTROSE 5% 50 ML IVPB SCH (20:30)
[2021-04-11] MEDS ORDERED: LORazepam 0.5MG TABLET PO PRN (21:30)
[2021-04-12] MEDS: PIPERACILLIN/TAZO 3.375 GM in DEXTROSE 5% 50 ML IVPB SCH ×2 (00:49→09:12)
[2021-04-12] MEDS: MELATONIN 5 MG TABLET PO PRN (00:50)
[2021-04-12] MEDS: NS + 20MEQ KCL 1,000 ML IV SCH ×2 (00:50→09:39)
[2021-04-12 03:55] VITALS: BP 152/95
[2021-04-12] MEDS: HEPARIN 5,000 UNITS/ML, 1ML SQ SCH ×2 (05:44→12:32)
[2021-04-12] MEDS: DEXAMETHASONE 4 MG/ML, 1ML IVPush SCH (07:36)
[2021-04-12 08:18] VITALS: BP 153/93
[2021-04-12] MEDS: SENNA/DOCUSATE TABLET PO SCH (09:00)
[2021-04-12] MEDS: ZINC SULFATE 220 MG CAPSULE PO SCH (09:11)
[2021-04-12] MEDS: ASCORBIC ACID 500 MG TABLET PO SCH (09:12)
[2021-04-12] MEDS: DOXYCYCLINE 100 MG in DEXTROSE 5% 250 ML IV SCH (09:12)
[2021-04-12] MEDS: CHOLECALCIFEROL 5,000u TAB PO SCH (09:12)
[2021-04-12] MEDS ORDERED: LEVO500T8 PO (10:45)
[2021-04-12 12:23] VITALS: BP 156/92
== END 2021-04-12 15:29 | disposition home or self-care (01) | DRG 871 ==
LOC: ED 18:09 → EDIP 19:45 → 4WST 21:06
PROVIDERS: ADMIT Internal Medicine; ATTEND Family Medicine
DX: A41.9 Sepsis, unspecified organism (principal); J96.01 Acute respiratory failure with hypoxia; U07.1 COVID-19; J12.82 Pneumonia due to coronavirus disease 2019; E87.6 Hypokalemia; I10 Essential (primary) hypertension; Z87.891 Personal history of nicotine dependence; Z91.19 Patient's noncompliance with other medical treatment and regimen; Z88.1 Allergy status to other antibiotic agents
CPT/HCPCS: 36415; 71045; 80048; 82040; 83605; 83880; 84484; 85025; 93005; 96361; 96374; 99285; G0378; J0696; J1100; J1644; J2543; J3480; J7060; J7030